=== PATIENT | female | born 1965 | race African-American/Black ===

== ENCOUNTER 2016-11-05 05:49 | Day surgery (SDC) | payer BC ==
[2016-10-27 17:33] LABS: HEMATOCRIT 34.1 % (36.0-48.0); HEMOGLOBIN 11.4 g/dL (12.0-16.0)
[2016-10-27 17:45] LABS: PARTIAL THROMBO TIME 28.6 SEC (22.5-37.2)
--- NOTE | ~2016-11-05 | OP ---
Record Of Operation [facility] [address] [place]. [address] NAME: NOEL SAMS : 61 [place]US : [place] [facility] [place] [id number] AGE: 50 ADM/REG DATE : 11/05/16 MR#: [id number] REPORT SERV DATE: 11/05/16 DICTATED BY: ADI PERALTA DATE: 11/05/16 REPORT STATUS : Draft TRANSCRIBED BY: GIOVANNI DATE: 11/05/16 DATE OF PROCEDURE: 11/05/2016 PREOPERATIVE DIAGNOSIS: Nasal obstruction with deviated septum and bilateral inferior turbinate hypertrophy. POSTOPERATIVE DIAGNOSIS: Nasal obstruction with deviated septum and bilateral inferior turbinate hypertrophy. PROCEDURE: Nasal endoscopy, septoplasty, and inferior turbinate reduction. ANESTHESIA: General endotracheal anesthesia. was utilized. ESTIMATED BLOOD LOSS: 15 mL. FLUIDS: Given 600 mL. COMPLICATIONS: No complications. FINDINGS: 2+ to 3+ deviated nasal septum to the left, Ritter splints placed. INDICATIONS FOR PROCEDURE: This is a 50-year-old female with nasal obstruction and sleep apnea symptoms due to deviated septum and turbinate hypertrophy. She was treated with maximum medical therapy with continued obstruction. CT scan continues to show she has a deviated septum. She has the indications for the procedure described. Described the risks and benefits of the procedure including blood loss, infection, risk of anesthesia, pain and bleeding postoperatively, and continued nasal obstruction. She voiced understanding and signed the consent. The consent was placed in the chart at the time of operation. PROCEDURE: The patient was wheeled to the OR suite, placed on the OR table in significant supine position. She was intubated under general endotracheal anesthesia using an oral ESTEFANIA tube. The table was turned 90 degrees, and she was prepped and draped in the standard fashion for septoplasty and nasal endoscopy. Her nose was sprayed with Afrin nasal spray just after intubation and 4% cocaine-soaked cottonoids were placed on both sides of the nasal cavity just at the beginning of the procedure. After 3 minutes to 5 minutes, I would start with the septum, I injected 2 mL of 1% lidocaine with 1:100,000 epinephrine on both sides, and I would make a [place]-type incision on the left, elevated ipsilateral mucoperiosteal and mucoperichondrial flaps around the portions of curved cartilage, I then made a vertical incision just distal to this in the caudal cartilage, elevated the contralateral flaps in these areas as well. I then removed the bent cartilage of the curved cartilage using Sam posteriorly around the area of the curvature, and I would remove the maxillary crest in this area using the osteotome and a Sam. Once the cartilage was removed, I placed a #[address], she had a nice straight septum. I would suction of the flaps and then approximate these using a septal stapler with 5 different stacy with good approximation of the flaps. I then injected each inferior turbinate with 1 cc of Record Of Operation [facility] [address] [place] [id number] NAME: NOEL SAMS : 61 [place]US : [place] [facility] [place] [id number] AGE: 50 ADM/REG DATE : 11/05/16 MR#: [id number] REPORT SERV DATE: 11/05/16 DICTATED BY: ADI PERALTA DATE: 11/05/16 REPORT STATUS : Draft TRANSCRIBED BY: GIOVANNI DATE: 11/05/16 local, and using an inferior turbinate blade with microdebrider, I performed submucosal resection of turbinate, these were outfractured using the butter knife and dissection of the nasal cavity until I had a nice straight septum, then I would have large space in the nasal cavity. I would place Ritter splints on each side of the septum and affix these to the anterior septum using three 3-0 nylon sutures and the procedure was completed. She was returned to the care of the anesthesiologist, subsequently awoken, extubated, and stably transferred to the recovery area. Estimated blood loss 15 mL. No complications. Ritter splints placed. Total fluids given 600 mL. SRUTHI/GIOVANNI Adi Peralta M.D. / [id number] CC: Adi Peralta M.D. [facility]
[~2016-11-05 05:49] MED LIST: AMITIZA24 PO; ESTROGEL TD; KLOR-CON20 MEQ PO; L40 PO; MOBIC7.5 PO; VITD PO; [UNRECOGNIZED DRUG - OTHER] SL
== END 2016-11-05 16:08 | disposition home or self-care (01) ==
LOC: SDC 05:49
PROVIDERS: Otolaryngology
PROC: 09BM4ZZ Excision of Nasal Septum, Percutaneous Endoscopic Approach (ICD-10-PCS; principal; 2016-11-05 07:15)
DX: J34.2 Deviated nasal septum (principal); J34.89 Other specified disorders of nose and nasal sinuses; J34.3 Hypertrophy of nasal turbinates; F32.9 Major depressive disorder, single episode, unspecified; F41.9 Anxiety disorder, unspecified; I10 Essential (primary) hypertension; K58.9 Irritable bowel syndrome, unspecified; M19.90 Unspecified osteoarthritis, unspecified site; Z90.710 Acquired absence of both cervix and uterus; Z98.890 Other specified postprocedural states
CPT/HCPCS: 85014; 85018; 85730; 88300; 93005; A9270-GY; J0690; J2250; J2405; J2710; J3010